=== PATIENT | male | born 1985 | race Caucasian/White ===

== ENCOUNTER 2017-12-16 14:49 | Emergency (ER) | payer MEDICAID ==
[~2017-12-16] VITALS: Ht 193 cm; Wt 97.5 kg
[2017-12-16 15:27] VITALS: BP 128/82
== END 2017-12-16 15:58 | disposition home or self-care (01) ==
LOC: ER 15:04
DX: T23.242A Burn of second degree of multiple left fingers (nail), including thumb, initial encounter (principal); T23.241A Burn of second degree of multiple right fingers (nail), including thumb, initial encounter; T31.0 Burns involving less than 10% of body surface; F17.210 Nicotine dependence, cigarettes, uncomplicated; X08.8XXA Exposure to other specified smoke, fire and flames, initial encounter; Y93.89 Activity, other specified; Y92.89 Other specified places as the place of occurrence of the external cause; Y99.8 Other external cause status